=== PATIENT | female | born 1955 | race Caucasian/White ===

== ENCOUNTER → 2020-10-18 | Outpatient (REF) ==
--- NOTE | 2020-10-18 15:09 | REP ---
INDICATION: BACK PAIN COMPARISON: None. TECHNIQUE: AP, lateral, coned-down views of the lumbar spine. FINDINGS: Three views of the lumbosacral spine demonstrate satisfactory alignment and lordosis without acute fracture / compression injury or subluxation. Endplate sclerosis with disc space narrowing and osteophyte formation at T12-L1 noted along with very minimal disc space narrowing at L4-5. Remainder of the examination is essentially age-appropriate. IMPRESSION: 1. No acute fracture / compression injury or subluxation. 2. Mild degenerative changes. <Electronically signed by Tiago Angulo > 10/18/20 [id number]
== END ==
LOC: M PLAIMG 14:07
PROVIDERS: ATTEND Internal Medicine
DX: M54.5 Low back pain (principal)